=== PATIENT | male | born 1950 | race Caucasian/White ===

== ENCOUNTER 2020-06-22 23:29 | Inpatient (IN) | payer MEDICARE ==
[~2020-06-22] VITALS: Ht 180.3 cm; Wt 86.2 kg
[~2020-06-22 23:29] MED LIST: ATOR40TA PO; CHOL200026 PO; HYDR12.5 PO; PSYL0.525 PO; [UNRECOGNIZED DRUG - OTHER] PO
--- NOTE | 2020-06-22 23:30 | NUR ---
BIBPA C/O AGRESSIVE BEHAVIOR, ATGITATION, & COMBATIVE TO SNF STAFF PER EMT REPORT. PT ON 5150 HOLD. PT NOTED AGRESSIVE BEHAVIOR, PT TO BED 12, -SOB, -CP. VSS. PENDING ER PROVIDER LEONID
[2020-06-22] MEDS ORDERED: LORAZEPAM INJ 2 MG/ML VIAL ONE (23:58)
[2020-06-22] MEDS ORDERED: OLANZAPINE 10 MG VIAL IM ONE (23:58)
[2020-06-23] MEDS ORDERED: OLANZAPINE 10 MG VIAL IM ONE
[2020-06-23] MEDS ORDERED: LORAZEPAM INJ 2 MG/ML VIAL IM ONE
[2020-06-23 00:33] LABS: APPEARANCE,URINE CLEAR (CLEAR); BILIRUBIN,URINE NEGATIVE (NEGATIVE); BLOOD, URINE TRACE-INTA Ery/uL (NEGATIVE); COLOR,URINE YELLOW (YELLOW); KETONES,URINE NEGATIVE (NEGATIVE); LEUKOCYTE ESTERASE ,URINE NEGATIVE (NEGATIVE); NITRITE, URINE NEGATIVE (NEGATIVE); PROTEIN,URINE NEGATIVE (NEGATIVE); UGLUCOSE NEGATIVE (NEGATIVE); UROBILINOGEN,URINE 0.2 EU/dL (0.2)
[2020-06-23 00:44] LABS: BASOPHILS # (AUTO) 0.1 /CMM (0.0-0.2); BASOPHILS % (AUTO) 0.7 % (0.0-2.0); EOSINOPHILS % (AUTO) 0.9 % (0.0-6.0); HEMATOCRIT 45 % (39-51); LYMPHOCYTES # (AUTO) 2.5 /CMM (0.8-4.8); LYMPHOCYTES % (AUTO) 20.4 % (20.0-44.0); MEAN CORPUSCULAR HGB CONC 33 g/dl (31.0-36.0); MEAN CORPUSCULAR VOLUME 95 fL (80-96); MONOCYTES # (AUTO) 1.1 /CMM (0.1-1.30); MONOCYTES % (AUTO) 9.4 % (2.0-12.0); NEUTROPHILS # (AUTO) 8.3 /CMM (1.8-8.9); NEUTROPHILS % (AUTO) 68.6 % (43.0-81.0); PLATELET COUNT (AUTO) 148 /CMM (150-450); RED BLOOD CELL COUNT(AUTO) 4.76 MIL/uL (4.5-6.0)
--- NOTE | 2020-06-23 00:45 | NUR ---
GPS 215-1
[2020-06-23 00:54] LABS: CALCIUM, SERUM 9.4 mg/dL (8.5-10.1); CARBON DIOXIDE 25 mmol/L (21-32); CHLORIDE 104 mmol/L (98-107); CREATININE 1.5 mg/dL (0.6-1.3); GLUCOSE 91 mg/dL (74-106); POTASSIUM 4.9 mmol/L (3.5-5.1); SODIUM SERUM 140 mmol/L (136-145); UREA NITROGEN, BLOOD 20 mg/dL (7-18)
[2020-06-23 00:59] LABS: BACTERIA,URINE None seen /HPF (None Seen); RBC,URINE 0-2 /HPF (0-2); SQUAMOUS EPITHELIAL CELL,UR Rare /HPF (None Seen); WBC,URINE 0-2 /HPF (0-3)
[2020-06-23 01:00] LABS: ALANINE AMINOTRANSFERASE 11 U/L (12-78); ALBUMIN 3.4 g/dL (3.4-5.0); ALCOHOL, BLOOD < 3 mg/dL (0-0); ALKALINE PHOSPHATASE 64 U/L (46-116); ASPARTATE AMINOTRANSFERASE 19 U/L (15-37); BILIRUBIN,TOTAL 0.3 mg/dL (0.2-1.0); SALICYLATE 3.9 mg/dL (2.8-20.0); TOTAL PROTEIN, SERUM 7.5 g/dL (6.4-8.2)
[2020-06-23 01:05] LABS: ACETAMINOPHEN 0 ug/ml (10-30)
[2020-06-23] MEDS ORDERED: TERA1CAP4 PO (01:25)
[2020-06-23] MEDS ORDERED: OLAN10TA3 PO (01:25)
[2020-06-23] MEDS ORDERED: DIVA500T4 PO (01:25)
[2020-06-23] MEDS ORDERED: PENT400T17 PO (01:25)
--- NOTE | 2020-06-23 01:53 | NUR ---
PT TO GPS VIA CASSANDRA
--- NOTE | 2020-06-23 02:01 | NUR ---
REPORT GIVEN TO ZION VERA FOR DARIA; PT TRANSPORTED TO GPS
[2020-06-23] MEDS ORDERED: ACETAMINOPHEN 325 MG TABLET PO PRN (03:00)
[2020-06-23] MEDS ORDERED: LORAZEPAM 1 MG TABLET PO PRN (03:00)
[2020-06-23] MEDS ORDERED: MAG HYDROX/AL HYDROX/SIMETH 30 ML UDC PO PRN (03:00)
[2020-06-23] MEDS ORDERED: MAGNESIUM HYDROXIDE 30 ML UDC PO PRN (03:00)
[2020-06-23] MEDS ORDERED: TEMAZEPAM 7.5 MG CAPSULE PO PRN (03:00)
[2020-06-23] MEDS ORDERED: BLOOD SUGAR DIAGNOSTIC 1 EACH STRIP IN ONE (03:30)
[2020-06-23 03:33] VITALS: BP 135/78
--- NOTE | 2020-06-23 03:46 | NUR ---
GPS RN NOTE: ADMITTING NOTE PT WAS ADMITTED TO UNIT ON 06/23/20 @ 0200. PT IS A 70 Y/O MALE PUT ON A 5150 DUE TO DANGER TO OTHERS AND GRAVELY DISABLED. PER HOLD PT WAS VERBALLY AND PHYSICALLY AGGRESSIVE AT FACILITY WITH STAFF AND RESIDENTS AND HAD BEEN REFUSING TREATMENT FOR THE LAST COUPLE OF DAYS. PT HAS MEDICAL HX OF HTN, HYPERLIPIDEMIA AND BPH. PT HAS PSYCHIATRIC HX OF SCHIZOPHRENIA. PT IS COMING FROM [facility]. PT ARRIVED ON THE UNIT A/O X2, WHEN THE PT WAS IN THE ER, PT RECEIVED AN IM INJECTION OF ATIVAN 1 MG AND ZYPREXA 10MG DUE TO AGITATED, AGGRESSIVE BEHAVIOR. PT IS CURRENTLY CALM, LETHARGIC, GUARDED, FLAT AFFECT, DEPRESSED MOOD, WITHDRAWN AND DISORIENTED, WAS ABLE TO COMPLETE AN ASSESSMENT ON THE PT, SKIN ASSESSMENT DONE, PICTURES PLACED IN CHART, WOUND CONSULT ORDERED, PT DENIES SI/HI, PT STATES HE WAS FEELING SLIGHTLY DEPRESSED WITH NO INTENTION TO HARM HIMSELF. PT DENIES WANTING TO HARM OTHERS, DENIES AVH, DENIES SUBSTANCE ABUSE, PT STATES HE IS A CURRENT SMOKER, SMOKED 4 CIGARETTES A DAY, REFUSED TO HAVE ANY INFORMATION REGARDING QUITTING. PT HAS AN UNKEPT, DISHEVELED, POOR HYGIENE APPEARANCE. WHEN ASKED PT WHO HE WOULD LIKE US TO NOTIFY HE SAID "NO ONE, I HAVE NO FAMILY". ONCE RECEIVING PTS PAPERWORK IT WAS NOTED THAT THE PT ONCE HAD A CONSERVATOR BUT THE DOCUMENTATION MARCH 2020, WILL LET CAT DOG OR OTHER PET GROOMER KNOW TO SEE IF THEY WOULD LIKE TO F/U. PT WILL BE UNDER THE MEDICAL CARE OF DR. DAHL AND PSYCHIATRIST DR. VANG WILL BE APART OF THE PTS PLAN OF CARE. PT IS ADVISED OF HOLD, HOLD WAS GIVEN TO THE PT, PTS RIGHTS HANDBOOK GIVEN TO THE PT. BED IS IN LOCKED, LOWEST POSITION, BED ALARM IS ON. WILL CONTINUE TO MONITOR Q15MIN FOR SAFETY AND BEHAVIOR.
[2020-06-23 08:00] VITALS: BP 134/82
[2020-06-23] MEDS: NICOTINE PATCH (21MG) 21 MG PATCH.TD24 TD SCH (09:00)
--- NOTE | 2020-06-23 09:00 | NUR ---
RN NOTE- PT IN BED SLEEPING, EASILY AWAKENED PO INTAKE GOOD CONFUSED DISORGANIZED AND PARANOID THOUGH . PT A BIT IRRITABLE DENIES SI HI AH VH "LEAVE ME ALONE" WHEN QUESTIONED DIRECTABLE NO BEHAVIORAL ISSUES AT PRESENT
[2020-06-23 16:00] VITALS: BP 134/69
[2020-06-23 19:57] VITALS: BP 128/87
--- NOTE | 2020-06-23 20:00 | NUR ---
GPS RN NOTE: CALLED AND SPOKE WITH HESHAM AT 195 TO RECONCILE MEDS AND WAS TOLD IT WAS REVIEWED EARLIER AT ER BUT THE DOCTOR DECIDED NOT TO CONTINUE WITH THEM. WILL CONTINUE TO MONITOR PER GPS POLICY.
--- NOTE | 2020-06-23 20:52 | NUR ---
GPS RN NOTE: PT MEDICATION HAS BEEN RECONCILED BY DR MCDOWELL.
[2020-06-23] MEDS: TERAZOSIN HCL 1 MG CAPSULE PO SCH (22:47)
[2020-06-23] MEDS: OLANZAPINE 10 MG TABLET PO SCH (22:48)
[2020-06-23] MEDS: ATORVASTATIN 40 MG TABLET PO SCH (22:48)
[2020-06-23] MEDS: PENTOXIFYLLINE 400 MG TABLET.SA PO SCH (22:48)
[2020-06-23] MEDS: DIVALPROEX SODIUM 500 MG TABLET.DR PO SCH (22:53)
[2020-06-23] MEDS ORDERED: DIVALPROEX SODIUM 500 MG TABLET.DR PO SCH (23:00)
[2020-06-24 07:07] LABS: BASOPHILS # (AUTO) 0.1 /CMM (0.0-0.2); BASOPHILS % (AUTO) 0.7 % (0.0-2.0); EOSINOPHILS % (AUTO) 2.9 % (0.0-6.0); HEMATOCRIT 47 % (39-51); HEMOGLOBIN 15.7 g/dL (13.5-17.5); LYMPHOCYTES # (AUTO) 1.9 /CMM (0.8-4.8); LYMPHOCYTES % (AUTO) 25.9 % (20.0-44.0); MEAN CORPUSCULAR HGB CONC 33 g/dl (31.0-36.0); MEAN CORPUSCULAR VOLUME 94 fL (80-96); MONOCYTES # (AUTO) 0.6 /CMM (0.1-1.30); MONOCYTES % (AUTO) 7.9 % (2.0-12.0); NEUTROPHILS # (AUTO) 4.5 /CMM (1.8-8.9); NEUTROPHILS % (AUTO) 62.6 % (43.0-81.0); PLATELET COUNT (AUTO) 166 /CMM (150-450); RED BLOOD CELL COUNT(AUTO) 4.99 MIL/uL (4.5-6.0); WHITE BLOOD COUNT (AUTO) 7.2 K/uL (4.3-11.0)
[2020-06-24 07:38] LABS: CALCIUM, SERUM 9.5 mg/dL (8.5-10.1); POTASSIUM 4.4 mmol/L (3.5-5.1)
[2020-06-24 08:00] VITALS: BP 151/65
[2020-06-24] MEDS: HYDROCHLOROTHIAZIDE 25 MG TABLET PO SCH (08:24)
[2020-06-24] MEDS: NICOTINE PATCH (21MG) 21 MG PATCH.TD24 TD SCH (08:24)
[2020-06-24] MEDS ORDERED: HYDROCHLOROTHIAZIDE 12.5 MG CAPSULE PO SCH (09:00)
--- NOTE | 2020-06-24 13:48 | NUR ---
GPS/RN Dr Brown seen the pt. new orders received and carried out.
[2020-06-24 16:00] VITALS: BP 131/67
--- NOTE | 2020-06-24 19:20 | NUR ---
RN NOTES: RECEIVED PATIENT WALKING IN THE HALLWAY, WITH STEADY GAIT. NO S/S OF DISTRESS NOTED. NO COMPLAIN OF PAIN. PATIENT IS CALM AND HAPPY.
[2020-06-24 20:00] VITALS: BP 125/73
[2020-06-24] MEDS: TERAZOSIN HCL 1 MG CAPSULE PO SCH (21:38)
[2020-06-24] MEDS: OLANZAPINE 10 MG TABLET PO SCH (21:38)
[2020-06-24] MEDS: PENTOXIFYLLINE 400 MG TABLET.SA PO SCH (21:38)
[2020-06-24] MEDS: ATORVASTATIN 40 MG TABLET PO SCH (21:39)
[2020-06-24] MEDS: DIVALPROEX SODIUM 500 MG TABLET.DR PO SCH (21:39)
[2020-06-25 08:00] VITALS: BP 129/58
[2020-06-25] MEDS: NICOTINE PATCH (21MG) 21 MG PATCH.TD24 TD SCH ×2 (08:34→08:36)
[2020-06-25] MEDS: HYDROCHLOROTHIAZIDE 25 MG TABLET PO SCH (08:34)
[2020-06-25] MEDS ORDERED: HYDROCHLOROTHIAZIDE 25 MG TABLET PO SCH (09:00)
--- NOTE | 2020-06-25 09:00 | NUR ---
RN NOTE- PT OOB AND VISIBLE ON UNIT. REQUESTING SHOWER AND CLEAN CLOTHING PO INTAKE GOOD MED COMPLIANT ALERT ORIENTED TO PERSON PLACE TIME PURPOSE DENIES SI HI AH VH CALM, DIRECTABLE
--- NOTE | 2020-06-25 11:34 | NUR ---
Facility Contact: PRAVEENA called Sabrina Carvalho ([phone]), from [facility], who stated that the pt can return to the facility once he is stable.
--- NOTE | 2020-06-25 11:38 | NUR ---
Conservator Manager Of Warehouse Contact: PRAVEENA called the pts Conservator Manager Of Warehouse, Alaina ([phone]) and informed her that the pt is not being discharged today and that the pts hold was extended to a 5250-14 day hold. She stated that the best plan of action would be to postpone the hearing until the pt is discharged from the hospital. PRAVEENA agreed.
--- NOTE | 2020-06-25 15:29 | NUR ---
Initial Discharge Plan: Pt currently resides at [facility] located at [address] [place] [address]; ([phone]). Per pt, he would like to return. SW will work with the pt and the MD regarding appropriate discharge planning. SW will form a safe and proper discharge.
[2020-06-25 16:00] VITALS: BP 121/59
[2020-06-25 20:14] VITALS: BP 158/63
[2020-06-25] MEDS: DIVALPROEX SODIUM 500 MG TABLET.DR PO SCH (21:22)
[2020-06-25] MEDS: TERAZOSIN HCL 1 MG CAPSULE PO SCH (21:22)
[2020-06-25] MEDS: ATORVASTATIN 40 MG TABLET PO SCH (21:22)
[2020-06-25] MEDS: OLANZAPINE 10 MG TABLET PO SCH (21:23)
[2020-06-25] MEDS: PENTOXIFYLLINE 400 MG TABLET.SA PO SCH (21:23)
--- NOTE | 2020-06-25 21:32 | NUR ---
GPS RN NOTES: REFUSED PM MEDS PT REFUSED MEDICATION DUE. PT REFUSED DEPAKOTE, TERAZOSIN, LIPITOR, TRENTAL, AND ZYPREXA. PT STATED, "IM NOT TAKING THAT SHIT. IM HERE AND NO ONE CARES IF I STAY LONGER." EXPLAIN RISKS AND BENEFITS. PT STILL REFUSED X3. CONTINUE TO MONITOR
[2020-06-26 08:00] VITALS: BP 126/67
[2020-06-26] MEDS: HYDROCHLOROTHIAZIDE 25 MG TABLET PO SCH (08:18)
[2020-06-26] MEDS: NICOTINE PATCH (21MG) 21 MG PATCH.TD24 TD SCH (08:19)
--- NOTE | 2020-06-26 09:00 | NUR ---
RN NOTE- REFUSING ALL MEDS AND CARE, OPPOSITIONAL ANGRY THAT PLACED 14 DAY HOLD. DENIES SI HI AH VH . PO INTAKE GOOD
--- NOTE | 2020-06-26 09:59 | NUR ---
WOUND CARE CONSULT: PT SEEN FOR SKIN ON FEET. SKIN IS INTACT ON FEET. PT STATES NO SKIN ISSUES. PT IS AMBULATORY AND CONTINENT WITH CURRENT GUILHERME SCORE OF 22. WILL SEE PRN.
[2020-06-26 16:00] VITALS: BP 131/69
[2020-06-26 20:00] VITALS: BP 157/78
[2020-06-26] MEDS: OLANZAPINE 10 MG TABLET PO SCH (22:10)
[2020-06-26] MEDS: ATORVASTATIN 40 MG TABLET PO SCH (22:10)
[2020-06-26] MEDS: PENTOXIFYLLINE 400 MG TABLET.SA PO SCH (22:10)
[2020-06-26] MEDS: TERAZOSIN HCL 1 MG CAPSULE PO SCH (22:10)
[2020-06-26] MEDS: DIVALPROEX SODIUM 500 MG TABLET.DR PO SCH (22:10)
[2020-06-27 08:00] VITALS: BP 156/78
[2020-06-27] MEDS: HYDROCHLOROTHIAZIDE 25 MG TABLET PO SCH (08:24)
[2020-06-27] MEDS: NICOTINE PATCH (21MG) 21 MG PATCH.TD24 TD SCH ×2 (08:24→08:31)
--- NOTE | 2020-06-27 08:25 | NUR ---
RN NOTE:PATIENT AGITATED MEDICATED WITH ATIVAN 1MG PO ,WILL CONTINUE TO MONITOR .
--- NOTE | 2020-06-27 11:04 | NUR ---
[facility]: PRAVEENA received a call from Jovanna ([phone] ext [phone]) from [facility] who stated that she is aware that the pt is now on a 5250 hold. She stated that she would like a clinical to be faxed to their center to the fax number: [phone]. PRAVEENA faxed the clinical as requested.
[2020-06-27 16:00] VITALS: BP 124/68
--- NOTE | 2020-06-27 19:35 | NUR ---
GPS RN NOTE PATIENT SLEEPING IN BED UPON ARRIVAL, EASY TO AWAKEN. ABLE TO VERBALIZE NEEDS. A/OX3. CURRENTLY CALM AND COOPERATIVE. ON 5250 HOLD. SAFETY MEASURES IN PLACE AND PATIENT'S NEEDS MET. WILL CONTINUE TO MONITOR FOR SAFETY.
[2020-06-27 20:05] VITALS: BP 118/67
[2020-06-27] MEDS: TERAZOSIN HCL 1 MG CAPSULE PO SCH (21:03)
[2020-06-27] MEDS: OLANZAPINE 10 MG TABLET PO SCH (21:04)
[2020-06-27] MEDS: DIVALPROEX SODIUM 500 MG TABLET.DR PO SCH (21:04)
[2020-06-27] MEDS: PENTOXIFYLLINE 400 MG TABLET.SA PO SCH (21:04)
[2020-06-27] MEDS: ATORVASTATIN 40 MG TABLET PO SCH (21:04)
[2020-06-28 07:47] VITALS: BP 125/73
[2020-06-28] MEDS: HYDROCHLOROTHIAZIDE 25 MG TABLET PO SCH (08:24)
[2020-06-28] MEDS: NICOTINE PATCH (21MG) 21 MG PATCH.TD24 TD SCH (08:26)
[2020-06-28 08:27] VITALS: BP 125/73
--- NOTE | 2020-06-28 14:59 | NUR ---
Facility Contact: PRAVEENA called Sabrina Deven ([phone]), from [facility], and informed her that the pt is going to be discharged the following day and she stated that the pt will be picked up around 12:30-1pm.
[2020-06-28 15:33] VITALS: BP 139/81
[2020-06-28 16:00] VITALS: BP 139/81
[2020-06-28 20:19] VITALS: BP 152/77
[2020-06-28] MEDS: DIVALPROEX SODIUM 500 MG TABLET.DR PO SCH (22:03)
[2020-06-28] MEDS: PENTOXIFYLLINE 400 MG TABLET.SA PO SCH (22:04)
[2020-06-28] MEDS: ATORVASTATIN 40 MG TABLET PO SCH (22:04)
[2020-06-28] MEDS: TERAZOSIN HCL 1 MG CAPSULE PO SCH (22:04)
[2020-06-28] MEDS: OLANZAPINE 10 MG TABLET PO SCH (22:05)
--- NOTE | 2020-06-29 06:59 | NUR ---
GPS RN CLOSING NOTES: PT AWAKE, ALERT AND ORIENTED X2-3. PT SLEPT 8HRS THIS SHIFT. NO BEHAVIORAL ISSUES THIS SHIFT. CALM AND COOPERATIVE. NO S/S OF DISTRESS. MEDICATION COMPLIANT. PT TO DC TODAY AT 1230 TO [facility]. ALL PT CARE NEEDS MET ANTICIPATED. WILL CONTINUE TO MONITOR AND ENDORSE TO AM SHIFT.
[2020-06-29 08:00] VITALS: BP 146/70
[2020-06-29 08:43] VITALS: BP 146/70
[2020-06-29] MEDS: HYDROCHLOROTHIAZIDE 25 MG TABLET PO SCH (08:43)
[2020-06-29] MEDS: NICOTINE PATCH (21MG) 21 MG PATCH.TD24 TD SCH (08:43)
--- NOTE | 2020-06-29 09:36 | NUR ---
Dr. hinton gave an order to D/C hold and D/C to [facility] and to follow up with psych and medical doctors.
--- NOTE | 2020-06-29 10:11 | NUR ---
Discharge Note: Pt was discharged to [facility] located at [address] [place] [id number]; ([phone]). Pt was picked up from the facility around 12:30-1pm. Upon discharge, the pt appeared to be in a euthymic mood and presented with a calm affect. Pt denied both suicidal and homicidal ideation as well as auditory and visual hallucinations. Pt appeared to be alert and oriented x4 (time, place, self, and situation). Pt appeared to be ambulatory with a steady gait and the pt appeared to be well groomed and appropriately dressed. Pt will be under the care of his psychiatrist, Dr. Cotter, [place] [address] [place] [address]; and his handmade tile artist, Dr. Rah[place], [place] [address] [place] [address]; .
--- NOTE | 2020-06-29 13:30 | NUR ---
gps rn note patient waiting for transportation for discharge. Patient denies suicidal and homicidal ideation. Patient in stable condition. Discharge instructions provided, verbalized understanding. Prescription provided to patient, education provided to patient on medication. Information given for follow up benita. Patient refused discharge pictures. All belongings accounted for. Belonging list signed. Patient was cleared by medical doctor (Dr. Rivera)for discharge.
--- NOTE | 2020-06-29 13:40 | NUR ---
Pt. left the unit with belongings and escorted by staff to the lobby and ambulatory. Pt. was instructed on meds to continue and verbalizes understanding and advised to make a follow up with psych and medical doctors and agreed. Pt. was picked up by facility transportation and picked up by Sabrina. Facility staff instructed that pt. is with prescriptions and to follow up with psych and medical doctors.
== END 2020-06-29 13:40 | DRG 885 ==
LOC: ER 23:35 → GPS 06-23 01:41
PROVIDERS: ADMIT Psychiatry & Neurology Psychiatry
DX: F31.64 Bipolar disorder, current episode mixed, severe, with psychotic features (principal); N17.0 Acute kidney failure with tubular necrosis; F23 Brief psychotic disorder; E78.5 Hyperlipidemia, unspecified; E55.9 Vitamin D deficiency, unspecified; I10 Essential (primary) hypertension; Z87.891 Personal history of nicotine dependence
CPT/HCPCS: 36415; 80048-TC; 80061-TC; 80076-TC; 80305; 81000-TC; 82962-TC; 85025-TC; 87081-TC; C9803-CS; G0480; J2060; J3490